=== PATIENT | female | born 1940 | race Caucasian/White ===

== ENCOUNTER 2019-09-17 16:00 | Emergency (ER) | payer OTHER ==
[2019-09-17 16:55] VITALS: BP 145/84; PULSE 100; TEMP 98; BMI 31.3
--- NOTE | 2019-09-17 17:19 | PDOC ---
Documentation entered by Lula Westbrook SCRIBE, acting as scribe for Shirley Conklin MD. Shirley Conklin MD: This documentation has been prepared by the Pietro lora Aiswarya, SCRIBE, under my direction and personally reviewed by me in its entirety. I confirm that the documentation accurately reflects all work, treatment, procedures, and medical decision making performed by me. History of Present Illness - General Chief Complaint: Cold Symptoms Stated Complaint: HEAD COLD Time Seen by Provider: 09/17/19 16:23 History Source: Patient Exam Limitations: No Limitations - History of Present Illness Initial Comments: 09/17/19 17:12 The patient is a 79 year old female, with a significant PMH of HTN and HLD, who presents to the emergency department with cold symptoms for 2 weeks. Patient state she endorses associated symptoms of generalized weakness,headache, fever, and body aches, mild relief with Tylenol. The patient denies chest pain, shortness of breath and dizziness.Denies chills, nausea, vomit, diarrhea and constipation.Denies dysuria, frequency, urgency and hematuria. Allergies: NKDA Past surgical history: 2 knee replacements. Social history: None reported PCP:Phoebe Ziegler Past History - Past Medical History Allergies/Adverse Reactions: Allergies Allergy/AdvReac Type Severity Reaction Status Date / Time No Known Allergies Allergy Unverified 09/17/19 16:27 Home Medications: Ambulatory Orders Atorvastatin Ca [Lipitor] 10 mg PO HS 09/17/19 Lisinopril 10 mg PO DAILY 09/17/19 Omeprazole 20 mg PO DAILY PRN 09/17/19 Review of Systems - Review of Systems Able to Perform ROS?: Yes Comments:: 09/17/19 17:12 GENERAL/CONSTITUTIONAL: +weakness No chills. HEAD, EYES, EARS, NOSE AND THROAT: No change in vision. No ear pain or discharge. No sore throat. CARDIOVASCULAR: No chest pain or shortness of breath. RESPIRATORY: No cough, wheezing, or hemoptysis. GASTROINTESTINAL: No nausea, vomiting, diarrhea or constipation. GENITOURINARY: No dysuria, frequency, or change in urination. MUSCULOSKELETAL: +body aches SKIN: No rash NEUROLOGIC: No headache, vertigo, loss of consciousness, or change in strength/ sensation. ENDOCRINE: No increased thirst. No abnormal weight change. HEMATOLOGIC/LYMPHATIC: No anemia, easy bleeding, or history of blood clots. ALLERGIC/IMMUNOLOGIC: No hives or skin allergy. *Physical Exam - Vital Signs Last Vital Signs Temp Pulse Resp BP Pulse Ox 98.0 F 100 H 16 145/84 98 09/17/19 16:11 09/17/19 16:11 09/17/19 16:11 09/17/19 16:11 09/17/19 16:11 Discharge - Discharge Information Problems reviewed: Yes Clinical Impression/Diagnosis: Upper respiratory infection Qualifiers: URI type: unspecified URI Qualified Code(s): J06.9 - Acute upper respiratory infection, unspecified Condition: Good Disposition: HOME - Admission No - Follow up/Referral Referrals: Phoebe Ziegler [Primary Care Provider] - - Patient Discharge Instructions Patient Printed Discharge Instructions: DI for Viral Upper Respiratory Infection -- Adult Additional Instructions: you came to the ED because you had nasal congestion for two weeks and a fever yesterday. We did not give you any treatment today because you are feeling much better today, but you MUST see your primary care doctor on Wednesday if your symptoms have not resolved. Return to the ED for fever, shortness of breath, nausea and vomiting, severe headache, chest pain or other new or worsening symptoms. - Post Discharge Activity
== END 2019-09-17 17:24 | disposition home or self-care (01) ==
LOC: FER 16:00
DX: J06.9 Acute upper respiratory infection, unspecified (principal); I10 Essential (primary) hypertension; E78.5 Hyperlipidemia, unspecified
CPT/HCPCS: 99281-25

== ENCOUNTER 2024-05-04 11:55 | Emergency (ER) | payer OTHER ==
[2024-05-04 12:25] VITALS: RESP 16; TEMP 98.2; BMI 31.1
[2024-05-04 13:11] VITALS: BP 123/59; PULSE 85
[2024-05-04 13:26] LABS: EPITHELIAL CELLS 0-5 /hpf
[2024-05-04 13:35] LABS: HEMATOCRIT 40.6 % (32.4-45.2); HEMOGLOBIN 13.1 G/dL (10.7-15.3); MCH 30.4 pg (25.7-33.7); MCHC 32.3 g/dl (32.0-36.0); MEAN CELL VOLUME 93.9 fl (80-96); MEAN PLT VOLUME 8.6 fl (7.5-11.1); PLATELET COUNT 257.2 10^3/uL (134-434); RBC 4.32 10^6/uL (3.60-5.2); RDW 14.2 % (11.6-15.6)
[2024-05-04 13:46] LABS: PROTHROMBIN TIME (PATIENT) 11.4 SEC (9.7-13.0)
[2024-05-04 13:48] LABS: ACTIVATED PTT 30.8 SECONDS (25.2-36.5)
[2024-05-04 13:56] LABS: ALBUMIN 4.3 g/dl (3.4-5.0); ALK PHOS 73 U/L (45-117); ANION GAP 9 mmol/L (4-13); BILIRUBIN,TOTAL 0.7 mg/dl (0.2-1); CALCIUM 10.3 mg/dl (8.5-10.1); CHLORIDE 101 mmol/L (98-107); CO2 27 mmol/L (21-32); CREATININE 0.9 mg/dl (0.6-1.3); GLUCOSE,RANDOM 106 mg/dl (74-106); POTASSIUM 4.5 mmol/L (3.5-5.1); SGOT/AST 17 U/L (15-37); SGPT/ALT 16 U/L (7-52); SODIUM 137 mmol/L (136-145); TOT PROT 6.9 g/dl (6.4-8.2)
[2024-05-04 14:32] LABS: PLATELET ESTIMATE ADEQUATE
== END 2024-05-04 15:40 | disposition home or self-care (01) ==
LOC: FER 11:55
DX: H53.9 Unspecified visual disturbance (principal); R53.1 Weakness; R53.83 Other fatigue
CPT/HCPCS: 36415; 70450-TC; 70496-TC; 70498-TC; 80053; 80061; 81003; 81015; 82550; 83036; 84443; 84484; 85025; 85610; 85730; 86850; 86900; 86901; 87086; 93005; 99285-25